=== PATIENT | male | born 1955 | race Caucasian/White ===

== ENCOUNTER 2024-04-14 19:56 | Emergency (ER) | payer MEDICARE ==
[~2024-04-14] VITALS: Ht 170.2 cm; Wt 91.8 kg
[2024-04-14 20:44] LABS: BASOPHILS % (AUTO) 0.7 % (0-1); EOSINOPHILS % (AUTO) 0.6 % (0-6); HEMATOCRIT 43.4 % (42.0-52.0); HEMOGLOBIN 14.8 g/dl (14.0-17.9); LYMPHOCYTES # (AUTO) 1.2 X10'3 (1.1-4.8); LYMPHOCYTES % (AUTO) 21.5 % (21-51); MEAN CORPUSCULAR HEMOGLOBIN 32.6 PG (27.0-31.0); MEAN CORPUSCULAR HGB CONC 34.1 g/dL (33.0-36.5); MEAN CORPUSCULAR VOLUME 95.4 FL (78-98); MONOCYTES # (AUTO) 0.4 X10'3 (0-0.9); MONOCYTES % (AUTO) 7.6 % (2-12); NEUTROPHILS % (AUTO) 69.6 % (42-75); PLATELET COUNT 168 X10'3 (140-440); RED BLOOD COUNT 4.55 X10'6 (4.70-6.10); RED CELL DISTRIBUTION WIDTH 13.9 % (11.5-14.5); WHITE BLOOD COUNT 5.7 X10'3 (4.5-11.0)
--- NOTE | 2024-04-14 20:44 | NUR ---
PT C/O RLQ PAIN RATES 05/25. MD AWARE AWAIT PENDING ORDERS.
[2024-04-14 21:00] LABS: ALBUMIN 3.5 G/DL (3.4-5.0); ANION GAP 6 (8-16); BLOOD UREA NITROGEN 17 MG/DL (7-18); BUN/CREATININE RATIO 21.8 (10.0-20.0); CALCIUM 9.3 MG/DL (8.5-10.1); CHLORIDE 103 MMOL/L (99-107); CREATININE 0.78 MG/DL (0.60-1.10); GLUCOSE 122 MG/DL (70-104); LIPASE 20 U/L (16-77); SODIUM 141 MMOL/L (135-145); TOTAL CARBON DIOXIDE 31.6 MMOL/L (24-32); eCRCL 84 ML/MIN; eGFR > 90 ML/MIN
[2024-04-14] MEDS ORDERED: iohexol 350MG/ML 100ml bottle IV ONE (21:06)
[2024-04-14] MEDS: morphine 4 MG/ML inj SYRINge IV ONE (21:15)
[2024-04-14] MEDS: ondansetron/PF 4mg/2ml inj IV ONE (21:16)
--- NOTE | 2024-04-14 21:18 | NUR ---
lab called per md request to see if blood was hemolized for k+ result. Per lab specimen not grossly hemolized however mildly hemolized
[2024-04-14] MEDS: normal saline 1000ml 1,000 ML IV ONE (21:24)
[2024-04-14 21:47] LABS: BILIRUBIN,URINE NEGATIVE (Neg); COLOR,URINE YELLOW (Yellow); GLUCOSE, URINE NEGATIVE (Neg); KETONES,URINE TRACE mg/dl (Neg); LEUKOCYTE ESTERASE ,URINE NEGATIVE (Neg); NITRITES, URINE NEGATIVE (Neg); OCCULT BLOOD,URINE LARGE (Neg); PROTEIN,URINE NEGATIVE (Neg); UROBILINOGEN,URINE 0.2 E.U/dL (0.2-1.0)
[2024-04-14 21:51] LABS: CLARITY,URINE SLIGHTLY CLOUDY (Clear); UA COLLECTION TYPE URINAL
[2024-04-14 21:55] LABS: RBC,URINE 50-100 /HPF (0-2); WBC,URINE 0-4 /HPF (0-4)
[2024-04-14 21:56] LABS: BACTERIA,URINE NONE SEEN /HPF (Neg); MUCUS STRANDS FEW /LPF (Neg); SQUAMOUS EPITHELIAL CELL,UR FEW /LPF (FEW)
--- NOTE | 2024-04-14 23:10 | NUR ---
pt asking for something to drink. aware and gave permission for pt to drink fluids. pt provided juice.
[2024-04-14 23:35] LABS: ANION GAP 11 (8-16); BLOOD UREA NITROGEN 16 MG/DL (7-18); BUN/CREATININE RATIO 21.9 (10.0-20.0); CALCIUM 8.5 MG/DL (8.5-10.1); CHLORIDE 106 MMOL/L (99-107); CREATININE 0.73 MG/DL (0.60-1.10); GLUCOSE 112 MG/DL (70-104); SODIUM 143 MMOL/L (135-145); TOTAL CARBON DIOXIDE 25.9 MMOL/L (24-32); eCRCL 89 ML/MIN; eGFR > 90 ML/MIN
[2024-04-14 23:42] LABS: ALANINE AMINOTRANSFERASE 78 U/L (12-78); ALBUMIN 3.1 G/DL (3.4-5.0); ALBUMIN/GLOBULIN RATIO 0.8 (1.1-1.5); ALKALINE PHOSPHATASE 56 IU/L (46-116); ASPARTATE AMINO TRANSFERASE 52 U/L (10-37); BILIRUBIN,TOTAL 0.6 MG/DL (0.1-1.0); POTASSIUM 4.6 MMOL/L (3.5-5.1); TOTAL PROTEIN 6.8 G/DL (6.4-8.2)
[2024-04-15 04:05] VITALS: BP 139/79; PULSE 89; RESP 18; TEMP 97.7; O2SAT 97
== END 2024-04-15 04:01 | disposition home or self-care (01) ==
LOC: ER 19:56
DX: R10.31 Right lower quadrant pain (principal); F41.9 Anxiety disorder, unspecified
CPT/HCPCS: 36415; 74174; 80048; 80053; 81001; 83690; 84484; 85025; 93005; 96361; 96374; 96375; 99285; J2270; J2405; J7030; Q9967